=== PATIENT | male | born 1975 | race Caucasian/White ===

== ENCOUNTER 2017-07-31 09:55 | Emergency (ER) | payer SELFPAY ==
[2017-07-31 09:59] VITALS: BP 154/102; BMI 24.4
--- NOTE | 2017-07-31 11:30 | DR.GENAD ---
HPI - PCP Primary Care Physician: NFD - Complaint/Symptoms Chief Complaint:: PT C/O FACIAL SWELLING. PT STATES HIS FACE STARTED SWELLING AROUND MIS MOUTH AREA YESTERDAY . PT THINKS IT MAYBE HIS GUMS OR TEETH, BUT WHEN HE WOKE UP THIS AM HIS FACE IS SWOLLEN UIP TO HIS RT EYE - Source History Provided: Patient - Mode of Arrival Mode of Arrival: Ambulatory - Timing Onset of Chief Complaint: 07/30/17 PMH - PMH Past Medical History: Yes Past Medical History: GERD, Gout, Hypertension, Kidney Stones Past Surgical History: Yes Surgical History: Cholecystectomy, Other - Family History History of Family Medical Conditions: Yes Family Medical History: Hypertension - Social History Does patient currently use any type of tobacco product: Yes Have you used tobacco products in the last 12 months: Yes Type of Tobacco Use: Cigarettes Does any household member use tobacco: Yes Alcohol Use: None Do you use any recreational Drugs:: No Lives With: Family Lives Where: Home - infectious screening In the last 2 months have you had wt loss of >10#?: NO Have you had fever, night sweats or hemotysis?: No Have you traveled outside the country in the last 6 months?: No Isolation: Standard ROS - Review of Systems Eyes: No Symptoms Reported ENTM: No Symptoms Reported Respiratoy: No Symptoms Reported Cardiovascular: No Symptoms Reported Gastrointestinal/Abdominal: No Symptoms Reported Genitourinary: No Symptoms Reported Neurological: No Symptoms Reported Musculoskeletal: No Symptoms Reported Integumentary: No Symptoms Reported Hematologic/Lymphatic: No Symptoms Reported Endocrine: No Symptoms Reported Psychiatric: No Symptoms Reported All Other Systems: Reviewed and Negative PE - Vital Signs Vitals: Temperature 97.9 F Pulse Rate 120 Respiratory Rate 20 Blood Pressure [Left Arm] 123/75 Blood Pressure [Right Arm] 103/58 Blood Pressure 154/102 O2 Sat by Pulse Oximetry 99 - General Limitations: No Limitations General Appearance: Alert, In No Apparent Distress - Head Head Exam: Normal Inspection, Atraumatic - Eyes Eye exam: Normal Appearance, PERRL, EOMI - ENT ENT Exam: Normal Exam, Other (Left side facial swelling at left maxilla/jaw) External Ear Exam: Normal External Inspection TM/Canal Exam: Bilateral Normal Nose Exam: Normal Nose Exam Mouth Exam: Normal Inspection, Other (tooth cavity left upper) Throat Exam: Normal Inspection - Neck Neck Exam: Normal Inspection - Chest Chest Inspection: Normal Inspection - Respiratory Respiratory Exam: Normal Lung Sounds Bilat Respiratory Exam: Bilateral Clear to Auscultation - Cardiovascular Cardiovascular Exam: Regular Rate, Normal Rhythm - Abdominal Exam Abdominal Exam: Normal Inspection Abdominal Tenderness: negative: RUQ, RLQ, LUQ, LLQ, Epigastrium, Suprapubic, Diffuse, Mild, Moderate, Severe, Other - Extremities Extremities Exam: Normal Inspection - Back Back Exam: Normal Inspection - Neurologic Neurological Exam: Alert, Oriented X3, CN II-XII Intact - Psychiatric Psychiatric Exam: Normal Affect - Skin Skin Exam: Warm, Dry, Intact ROR - XRAY XRAY Interpreted by: Radiologist (CT Sinuses: Negative, Facial Bones negative except for questionable periapical lucency around 1ST incisor ) - Diagnosis Discharge Problem: Abscess, periapical - Discharge Plan Condition: Stable - Follow ups/Referrals Follow ups/Referrals: NFD,None [Primary Care Provider] - 3 days - Instructions
--- NOTE | 2017-07-31 12:07 | CT ---
HISTORY: Right-sided facial swelling Study: CT paranasal sinuses without contrast Comparison: Technique: Multiple axial images of the paranasal sinuses were obtained without the administration of IV contrast. Coronal and sagittal reformats were performed and reviewed. Findings: The maxillary sinuses, anterior and posterior ethmoid air cells, sphenoid sinuses, and frontal sinuse s demonstrate no evidence for mucosal inflammatory disease. The nasal septum is midline. The ostiom eatal unit on the right and left are widely patent without inflammatory change. The left and right f rontal recesses are unremarkable in their appearance. Visualized portions of the posterior fossa and intracranial structures are unremarkable as well. IMPRESSION: 1. Unremarkable CT of the paranasal sinuses. Reported By:
--- NOTE | 2017-07-31 12:08 | CT ---
HISTORY: Right-sided facial swelling Study: CT facial bones Comparison: None Technique: Multiple axial images of the facial structures were obtained from the mandible to superior portions of the orbits. Findings: The visualized paranasal sinuses appear unremarkable without significant mucosal thickening or air-fl uid levels. The mandible as well as the surrounding bony structures appear unremarkable. The visual ized portions of the orbits as well as the globe within the right and left orbit are unremarkable in their CT appearance. Mild right-sided facial soft tissue swelling is noted. There is no definite flui d collections although there is no contrast which significantly limits evaluation. There is a lucency around the right 1st incisor tooth which could represent a periapical abscess. No bony destruction i s identified. Correlate clinically and then consider dental consultation IMPRESSION: As above. Reported By:
== END 2017-07-31 13:04 | disposition home or self-care (01) ==
LOC: ER 10:09
DX: K04.7 Periapical abscess without sinus (principal)
CPT/HCPCS: 70486; 99282